=== PATIENT | female | born 1970 | race Two or more races ===

== ENCOUNTER 2016-09-03 07:27 | Emergency (ER) | payer SELFPAY ==
[2016-09-03 07:44] VITALS: RESP 16; TEMP 98.2
[2016-09-03] MEDS ORDERED: fentaNYL 100 MCG/2 ML INJ ONE (08:27)
[2016-09-03] MEDS ORDERED: fentaNYL 100 MCG/2 ML INJ IVP ONE (08:30)
[2016-09-03 08:37] LABS: % IMMATURE GRANULYOCYTES 0.3 % (0.0-1.1); ABSOLUTE IMMATURE GRANULOCYTES 0.02 10^3/uL (0.00-0.10); ADD DIFF? NO; ADD MORPH? NO; ADD SCAN? NO; ATYPICAL LYMPHOCYTE FLAG 10 (0-99); FRAGMENT RBC FLAG 0 (0-99); HEMATOCRIT 38.8 % (38.0-47.0); HEMOGLOBIN 12.8 g/dL (12.6-16.3); LEFT SHIFT FLG 0 (0-99); LIPEMIA HEMOLYSIS FLAG 80 (0-99); MEAN CELL HEMOGLOBIN 27.5 pg (27.9-34.1); MEAN CELL VOLUME 83.4 fL (81.5-99.8); MEAN PLATELET VOLUME 9.9 fL (8.7-11.7); PLATELET CLUMPS FLAG 0 (0-99); PLATELET COUNT 316 10^3/uL (150-400); RED BLOOD CELL COUNT 4.65 10^6/uL (4.18-5.33); RED CELL DISTRIBUTION WIDTH 14.6 % (11.5-15.2)
[2016-09-03 08:44] LABS: COLOR PALE YELLOW; LEUKOCYTE ESTERASE,URINE NEGATIVE (NEGATIVE); NITRITE,URINE NEGATIVE (NEGATIVE)
[2016-09-03 08:45] LABS: ANION GAP 12 mEq/L (8-16); CALCIUM 9.5 mg/dL (8.5-10.4); CARBON DIOXIDE 21 mEq/l (22-31); CHLORIDE 108 mEq/L (97-110); CREATININE 0.6 mg/dL (0.6-1.0); GLOMERULAR FILTRATION RATE > 60; GLUCOSE 110 mg/dL (70-100); POTASSIUM 4.5 mEq/L (3.5-5.2); SODIUM 141 mEq/L (134-144)
[2016-09-03] MEDS ORDERED: KETOROLAC 30 MG/1 ML SDV IVP ONE (09:04)
--- NOTE | 2016-09-03 09:08 | EDPHY ---
HPI/HX/ROS/PE/MDM Narrative: Chief complaint: Right flank and right abdominal pain HPI: Patient presenting with 3 days of right flank pain radiating to her upper right abdomen. Pain got significantly worse yesterday. Some nausea no vomiting. No diarrhea. No fevers or chills. No dysuria. Does have a history of kidney stones on the left side but this feels different. Last menstrual was 17th of last month. Does not believe she is . No chest pain or shortness of breath. Patient is Malian-speaking. History obtained with a psychiatrist. ROS: 10 point Review of Systems is negative except as noted in the HPI. Physical exam: Gen: Awake, Alert, No Distress HEENT: Ears: Bilateral TMs are normal, no erythema or bulging. External auditory canals are clear. Nose: no rhinorrhea Eyes: PERRLA, EOMI Mouth: Moist mucosa Neck: Supple, no JVD Chest: nontender, lungs clear to auscultation Heart: S1, S2 normal, no murmur Abd: Soft, mild right lower quadrant tenderness, no guarding Back: no CVA tenderness, no midline tenderness Ext: no edema, non-tender Skin: no rash Neuro: CN II-XII intact, Sensation grossly intact, Strength 5/5 in bilateral upper and lower extremities ED Course: CT abdomen and pelvis, renal stone protocol. Interpreted by Dr. Dover. There is some moderate pelvic fluid with a left follicular cyst. There are no calculi in the urinary system. There is some questionable sludge in her gallbladder. Gallbladder ultrasound, interpreted by Dr. Dover. There is 10 mm polyps in her gallbladder with some large in size and number since her last ultrasound in 2011. He is recommending general surgical follow-up. Impression: 45-year-old with a right-sided abdominal flank pain. CT scan shows some follicular cyst on the left and some fluid which he consistent with a right ruptured cyst. There are no stones or other intra-abdominal process. There is some gallbladder sludge. Ultrasound shows some gallbladder polyps but no acute cholecystitis. Will discharge with follow up with surgery for consultation for gallbladder. Otherwise follow up with primary care physician and OBGYN. - Data Points Laboratory Results: Laboratory Results 09/03/16 08:30 09/03/16 07:48 09/03/16 09/03/16 09/03/16 10:00 08:30 08:20 WBC 7.38 10^3/uL (3.80-9.50) RBC 4.65 10^6/uL (4.18-5.33) Hgb 12.8 g/dL (12.6-16.3) Hct 38.8 % (38.0-47.0) MCV 83.4 fL (81.5-99.8) MCH 27.5 L pg (27.9-34.1) MCHC 33.0 g/dL (32.4-36.7) RDW 14.6 % (11.5-15.2) Plt Count 316 10^3/uL (150-400) MPV 9.9 fL (8.7-11.7) Neut % (Auto) 59.8 % (39.3-74.2) Lymph % (Auto) 30.4 % (15.0-45.0) Clarke % (Auto) 6.0 % (4.5-13.0) Eos % (Auto) 2.6 % (0.6-7.6) Baso % (Auto) 0.9 % (0.3-1.7) Nucleat RBC Rel Count 0.0 % (0.0-0.2) Absolute Neuts (auto) 4.42 10^3/uL (1.70-6.50) Absolute Lymphs (auto) 2.24 10^3/uL (1.00-3.00) Absolute Monos (auto) 0.44 10^3/uL (0.30-0.80) Absolute Eos (auto) 0.19 10^3/uL (0.03-0.40) Absolute Basos (auto) 0.07 10^3/uL (0.02-0.10) Absolute Nucleated RBC 0.00 10^3/uL (0-0.01) Immature Gran % 0.3 % (0.0-1.1) Immature Gran # 0.02 10^3/uL (0.00-0.10) Sodium Potassium Chloride Carbon Dioxide Anion Gap BUN Creatinine Estimated GFR Glucose Calcium Total Bilirubin 0.5 mg/dL (0.1-1.4) Conjugated Bilirubin 0.2 mg/dL (0.0-0.5) Unconjugated Bilirubin 0.3 mg/dL (0.0-1.1) AST 20 IU/L (14-46) ALT 27 IU/L (9-52) Alkaline Phosphatase 61 IU/L (38-126) Total Protein 7.6 g/dL (6.3-8.2) Albumin 4.2 g/dL (3.5-5.0) Lipase 120.0 IU/L (23-300) Beta HCG, Qual Urine Color PALE YELLOW Urine Appearance CLEAR Urine pH 7.0 (5.0-7.5) Ur Specific [place] 1.008 (1.002-1.030) Urine Protein NEGATIVE (NEGATIVE) Urine Ketones NEGATIVE (NEGATIVE) Urine Blood 2+ H (NEGATIVE) Urine Nitrate NEGATIVE (NEGATIVE) Urine Bilirubin NEGATIVE (NEGATIVE) Urine Urobilinogen NEGATIVE EU (0.2-1.0) Ur Leukocyte Esterase NEGATIVE (NEGATIVE) Urine RBC 3-5 H /hpf (0-3) Urine WBC 1-3 /hpf (0-3) Ur Epithelial Cells TRACE /lpf (NONE-1+) Ur Culture Indicated? NOT INDICATED (NI) Urine Glucose NEGATIVE (NEGATIVE) 09/03/16 07:48 WBC RBC Hgb Hct MCV MCH MCHC RDW Plt Count MPV Neut % (Auto) Lymph % (Auto) Clarke % (Auto) Eos % (Auto) Baso % (Auto) Nucleat RBC Rel Count Absolute Neuts (auto) Absolute Lymphs (auto) Absolute Monos (auto) Absolute Eos (auto) Absolute Basos (auto) Absolute Nucleated RBC Immature Gran % Immature Gran # Sodium 141 mEq/L (134-144) Potassium 4.5 mEq/L (3.5-5.2) Chloride 108 mEq/L (97-110) Carbon Dioxide 21 L mEq/l (22-31) Anion Gap 12 mEq/L (8-16) BUN 11 mg/dL (7-23) Creatinine 0.6 mg/dL (0.6-1.0) Estimated GFR > 60 Glucose 110 H mg/dL (70-100) Calcium 9.5 mg/dL (8.5-10.4) Total Bilirubin Conjugated Bilirubin Unconjugated Bilirubin AST ALT Alkaline Phosphatase Total Protein Albumin Lipase Beta HCG, Qual NEGATIVE Urine Color Urine Appearance Urine pH Ur Specific [place] Urine Protein Urine Ketones Urine Blood Urine Nitrate Urine Bilirubin Urine Urobilinogen Ur Leukocyte Esterase Urine RBC Urine WBC Ur Epithelial Cells Ur Culture Indicated? Urine Glucose Medications Given: Discontinued Medications Fentanyl (Sublimaze) 50 mcg IVP EDNOW ONE Stop: 09/03/16 08:31 Last Admin: 09/03/16 08:41 Dose: 50 mcg Ketorolac Tromethamine (Toradol) 30 mg IVP EDNOW ONE Stop: 09/03/16 09:05 Last Admin: 09/03/16 09:39 Dose: 30 mg General Time Seen by Provider: 09/03/16 08:55 Initial Vital Signs: Initial Vital Signs Temperature (C) 36.8 C 09/03/16 07:41 Heart Rate 74 09/03/16 07:41 Respiratory Rate 16 09/03/16 07:41 Blood Pressure 111/76 09/03/16 07:41 O2 Sat (%) 99 09/03/16 07:41 Allergies/Adverse Reactions: No Known Allergies Allergy (Unverified 09/03/16 07:45) Home Medications: Medication Instructions Recorded Hydrocodone/Acetaminophen 1 - 2 each PO Q4-6PRN PRN #10 09/03/16 [Hydrocodon-Acetaminophen 5-325] tablet Departure - Departure Disposition: Home, Routine, Self-Care Clinical Impression: Ruptured ovarian cyst, Gallbladder polyp Condition: Good Instructions: Ovarian Cyst (ED) Additional Instructions: You have polyps in your gallbladder. You need to follow up with a surgeon for further evaluation. He may take ibuprofen and hydrocodone for your pain. Follow up with her primary care physician in 3-4 days. Return to the emergency depart for increasing pain, shortness of breath, fevers , chills, nausea, vomiting, diarrhea, or any concerns. Usted tiene plipos en bragg vescula biliar. Usted necesite hacer loan maurizio de seguimiento con un cirujano para ser evaluada . Usted puede cassia ibuprofeno y hydrocodone por bragg dolor. Rupa loan maurizio de seguimiento con bragg doctor de maryra en 3-4 smith. Regrese a la john de emergencias por empeoramiento de dolor, falta de aire, fiebre, escalofros, nausea, vmito, diarrea, o cualquier otra preocupacin. Referrals: NONE *PRIMARY CARE P,. [Primary Care Provider] - As per Instructions Prescriptions: Hydrocodone/Acetaminophen [Hydrocodon-Acetaminophen 5-325] 1 - 2 each PO Q4- 6PRN PRN #10 tablet PRN Reason: Pain, Severe Print Language: Malian
--- NOTE | 2016-09-03 09:59 | CT ---
CT Abdomen and Pelvis (Renal Stone Study) 0 923 hours History: Flank pain and abdominal pain. Evaluate for possible kidney stone. Technique: Multidetector helical CT imaging was performed from the kidneys to the urinary bladder wi thout contrast. Images were reconstructed utilizing thin slices and reviewed in multiple planes. Dos e reduction techniques were utilized. CT Abdomen and Pelvis Findings: Comparison to prior CT study of 11/02/2012. Kidneys: No renal or ureteral calculi. No significant renal masses. Lung bases: Normal. Liver: Normal. Spleen: Normal. Gallbladder and Bile Ducts: There is suspicion of a small amount of sludge or nondense gallstones la yering in the dependent aspect of the gallbladder. There is no gallbladder wall thickening. Pancreas: Normal. Adrenals: Normal. Abdominal Aorta: No aneurysm. Pelvic structures: There is a mild amount of free fluid in the cul-de-sac. There is suspicion of a pe dunculated fibroid off the posterior aspect of the uterine body measuring about 18 mm. The ovaries ar e grossly normal in appearance although there may be an involuted follicular cyst on the left. Bladder: Normal. Appendix: Normal. Bowel Loops: Normal. No bowel obstruction, ascites, or significant retroperitoneal lymphadenopathy. Skeletal system: Vertebral body heights are well-maintained. There are no lytic or sclerotic osseous lesions. Impression: 1. No evidence of urinary tract calculus. 2. Questionable small amount of sludge or nondense gallstones in the gallbladder. 3. Pedunculated fibroid suspected off the posterior uterine body. 4. Possible involuted follicular cyst left adnexa. These findings were discussed by telephone with Dr. Magdiel Ely at 956 hrs. Attention: This CT examination is specifically designed to evaluate patients who are clinically suspe cted of having acute obstructive uropathy. This examination does not use radiographic contrast, and as such, provides only a limited evaluation of the abdomen, pelvis and retroperitoneum. If there is further clinical suspicion for pathological conditions other than obstructive uropathy, a complete C T evaluation of the abdomen and pelvis utilizing intravenous, oral, and rectal contrast should be con sidered.
[2016-09-03 10:43] LABS: ALBUMIN 4.2 g/dL (3.5-5.0); BILIRUBIN,TOTAL 0.5 mg/dL (0.1-1.4); BILIRUBIN-CONJUGATED 0.2 mg/dL (0.0-0.5); BILIRUBIN-UNCONJUGATED 0.3 mg/dL (0.0-1.1); TOTAL PROTEIN 7.6 g/dL (6.3-8.2)
--- NOTE | 2016-09-03 11:25 | US ---
Ultrasound of the Abdomen, Limited History: Right-sided abdominal and flank pain. Possible increased density in the gallbladder on CT study performed earlier today. Findings: Comparison to prior ultrasound study from 12/04/[address] study from earlier today. Pancreas: Homogeneous without peripancreatic fluid or ductal dilatation. Liver: Homogeneous in echogenicity without definite focal lesions. Normal size. There is normal colo r flow doppler pattern of the portal vein.. Gallbladder: There are at least 4 polyps now visualized within the gallbladder along the wall with th e largest measuring about 10 mm in diameter. These appear to have increased in size and number when c ompared to the prior ultrasound study. No shadowing calculi, wall thickening, or pericholecystic flui d. The patient was not significantly tender over the gallbladder fossa. Common bile duct is normal m easuring 5 mm in diameter. Right Kidney: Normal without hydronephrosis. Aorta: Visualized upper abdominal aorta demonstrates no aneurysm. Intrahepatic IVC: Normal Impression: 1. Increase in size and number of polyps along the gallbladder wall with the largest measuring 10 mm. Consider surgical consultation at some point. If cholecystectomy is not performed then consider foll ow-up ultrasound in 6 months. These findings were discussed by telephone with Dr. Magdiel Ely at 1122 hrs.
[2016-09-03 12:02] VITALS: BP 120/85; PULSE 71; O2SAT 94
== END 2016-09-03 12:04 | disposition home or self-care (01) ==
DX: N83.209 Unspecified ovarian cyst, unspecified side (principal); K82.4 Cholesterolosis of gallbladder
CPT/HCPCS: 96374; J1885; J3010